=== PATIENT | male | born 2000 | race Caucasian/White ===

== ENCOUNTER 2018-09-30 23:32 | Emergency (ER) | payer OTHER ==
[2018-09-30] MEDS ORDERED: Tetracaine HCl/PF 0.5% 4 ML Bottle EYEBOTH ONE (23:36)
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
== END 2018-10-01 00:13 | disposition home or self-care (01) ==
LOC: MW.ED 23:32
DX: H16.133 Photokeratitis, bilateral (principal); F17.210 Nicotine dependence, cigarettes, uncomplicated
CPT/HCPCS: 99283

== ENCOUNTER 2018-12-03 00:06 | Emergency (ER) | payer SELFPAY ==
[2018-12-03] MEDS ORDERED: Proparacaine 0.5% Ophth Soln 15 ML Bottle EYEBOTH STA (00:13)
[2018-12-03] MEDS ORDERED: Tetracaine HCl/PF 0.5% 4 ML Bottle EYEBOTH ONE (00:49)
[2018-12-03] MEDS ORDERED: Acetaminophen/HYDROcodone 325-10 MG Tab PO ONE (00:49)
[2018-12-03] MEDS ORDERED: Ketorolac 60 MG/2 ML SDV IM ONE (00:49)
[2018-12-03] MEDS ORDERED: Tetracaine HCl/PF 0.5% 4 ML Bottle ONE (00:49)
[2018-12-03] MEDS ORDERED: Ketorolac 60 MG/2 ML SDV ONE (00:50)
[2018-12-03] MEDS ORDERED: Acetaminophen/HYDROcodone 325-10 MG Tab ONE (00:50)
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
== END 2018-12-03 01:06 | disposition home or self-care (01) ==
LOC: MW.ED 00:06
DX: H16.133 Photokeratitis, bilateral (principal); F17.210 Nicotine dependence, cigarettes, uncomplicated
CPT/HCPCS: 99283